=== PATIENT | male | born 1985 | race Caucasian/White ===

== ENCOUNTER 2018-08-02 17:17 | Emergency (ER) | payer SELFPAY ==
--- NOTE | 2018-08-02 18:32 | ER ---
Nurse's Notes [facility] Name: Nomi Malhotra Age: 32 yrs Sex: Male : 1985 Arrival Date: 08/02/2018 Time: 17:20 Bed 19 Private MD: None, None Diagnosis: Back pain Presentation: 08/02 17:24 Presenting complaint: Patient states: "I was crawling on a scaffold and when I got up I aa5 hit a pipe". Pt c/o back pain that began Thursday. Transition of care: patient was not received from another setting of care. Onset of symptoms was July 2018. Risk Assessment: Do you want to hurt yourself or someone else? Patient reports no desire to harm self or others. Initial Sepsis Screen: Does the patient meet any 2 criteria? No. Patient's initial sepsis screen is negative. Does the patient have a suspected source of infection? No. Patient's initial sepsis screen is negative. Care prior to arrival: None. 17:24 Method Of Arrival: Ambulatory aa5 17:24 Acuity: TOMA 4 aa5 Triage Assessment: 17:35 General: Appears in no apparent distress. uncomfortable, Behavior is calm, cooperative, hj appropriate for age. Pain: Complains of pain in back. Musculoskeletal: Circulation, motion, and sensation intact. Capillary refill < 3 seconds, Range of motion: intact in all extremities. Historical: - Allergies: 17:33 No Known Allergies; aa5 - PMHx: 17:33 None; aa5 - PSHx: 17:33 None; aa5 - Immunization history:: Flu vaccine is not up to date. - Social history:: Smoking status: Patient uses tobacco products, smokes two packs cigarettes per day. - Ebola Screening: : No symptoms or risks identified at this time. Screenin:35 Abuse screen: Denies threats or abuse. Denies injuries from another. Nutritional hj screening: No deficits noted. Tuberculosis screening: No symptoms or risk factors identified. Fall Risk None identified. Assessment: 17:38 General: Appears in no apparent distress. uncomfortable, Behavior is calm, cooperative, hj appropriate for age. Pain: Complains of pain in back Pain currently is 4 out of 10 on a pain scale. Neuro: Level of Consciousness is awake, alert, obeys commands, Oriented to person, place, time, situation, Appropriate for age. Cardiovascular: Capillary refill < 3 seconds Patient's skin is warm and dry. Respiratory: Airway is patent Respiratory effort is even, unlabored, Respiratory pattern is regular, symmetrical. GI: No signs and/or symptoms were reported involving the gastrointestinal system. : No signs and/or symptoms were reported regarding the genitourinary system. EENT: No signs and/or symptoms were reported regarding the EENT system. Derm: No signs and/or symptoms reported regarding the dermatologic system. Musculoskeletal: Reports pain in back. Vital Signs: 17:33 BP 114 / 74; Pulse 91; Resp 18 S; Temp 98.9(TE); Pulse Ox 98% on R/A; Weight 104.33 kg aa5 (R); Height 5 ft. 10 in. (177.80 cm) (R); Pain 3/10; 17:33 Body Mass Index 33.00 (104.33 kg, 177.80 cm) aa5 ED Course: 17:20 Patient arrived in ED. mr 17:21 None, None is Private Physician. mr 17:24 Arm band placed on. aa5 17:32 Triage completed. aa5 17:34 Eloy Finney, TIMI is Primary Nurse. hj 17:35 Patient has correct armband on for positive identification. Placed in gown. Bed in low hj position. Call light in reach. Side rails up X 1. Adult w/ patient. 17:44 Dexter Morrissey PA is PHCP. cp 17:44 Robby Thapa MD is Attending Physician. cp 18:36 No provider procedures requiring assistance completed. Patient did not have IV access hj during this emergency room visit. Administered Medications: No medications were administered Outcome: 18:31 Discharge ordered by . cp 18:37 Discharged to home ambulatory, with family. hj 18:37 Condition: stable 18:37 Discharge instructions given to patient, family, Instructed on discharge instructions, follow up and referral plans. medication usage, Demonstrated understanding of instructions, follow-up care, medications, Prescriptions given X 2. 18:37 Patient left the ED. hj Signatures: Frida Vargas mr HassanShirlene RN RN aa5 Eloy Finney RN RN Dexter Morrissey PA PA cp
--- NOTE | 2018-08-02 18:33 | EDPHYS ---
Physician Documentation [facility] Name: Nomi Malhotra Age: 32 yrs Sex: Male : 1985 Arrival Date: 08/02/2018 Time: 17:20 Bed 19 Private MD: None, None ED Physician Robby Thapa HPI: 08/02 18:15 This 32 yrs old Male presents to ER via Ambulatory with complaints of Back cp Pain. 18:15 The patient presents with pain that is acute. The symptoms are located in the left cp scapular area, right scapular area, left subscapular area, right subscapular area and mid back area. Onset: The symptoms/episode began/occurred last week. The pain does not radiate. Associated signs and symptoms: Pertinent negatives: abdominal pain, chest pain, constipation, fever, incontinence, numbness, tingling, weakness. The problem was sustained when bending over, struck mid back area against pipe at work. Severity of symptoms: in the emergency department the symptoms have improved. 18:15 Patient reports he was seen by chiropractor who referred him to urgent care. Urgent cp care recommended patient be seen in ED. Historical: - Allergies: 17:33 No Known Allergies; aa5 - PMHx: 17:33 None; aa5 - PSHx: 17:33 None; aa5 - Immunization history:: Flu vaccine is not up to date. - Social history:: Smoking status: Patient uses tobacco products, smokes two packs cigarettes per day. - Ebola Screening: : No symptoms or risks identified at this time. ROS: 18:20 Constitutional: Negative for body aches, chills, fever, poor PO intake. cp 18:20 Eyes: Negative for injury, pain, redness, and discharge. cp 18:20 Neck: Negative for pain with movement, pain at rest, stiffness, tenderness, bony tenderness. 18:20 Cardiovascular: Negative for chest pain, edema, palpitations. 18:20 Respiratory: Negative for cough, shortness of breath, wheezing. 18:20 Abdomen/GI: Negative for abdominal pain, nausea, vomiting, and diarrhea, black/tarry stool, rectal bleeding. 18:20 Back: Positive for pain at rest, pain with movement, of the mid back area and upper back, Negative for decreased range of motion. 18:20 : Negative for urinary symptoms, difficulty urinating, bladder incontinence, testicular pain 18:20 Skin: Negative for cellulitis, rash. 18:20 Neuro: Negative for altered mental status, dizziness, headache, numbness, weakness. 18:20 All other systems are negative. Exam: 18:25 Constitutional: The patient appears in no acute distress, alert, awake, comfortable, cp non-diaphoretic, non-toxic, well developed, well nourished. 18:25 Head/Face: Normocephalic, atraumatic. cp 18:25 Eyes: Periorbital structures: appear normal, Pupils: equal, round, and reactive to light and accomodation, Extraocular movements: intact throughout, Conjunctiva: mild erythema medial aspect left eye. Sclera: no appreciated abnormality, Lids and lashes: appear normal, bilaterally. 18:25 ENT: External ear(s): are unremarkable, Ear canal(s): are normal, clear, TM's: dullness, bilaterally, Nose: is normal, Mouth: is normal, Posterior pharynx: is normal, airway is patent, no erythema, no exudate. 18:25 Neck: C-spine: vertebral tenderness, is not appreciated, crepitus, is not appreciated, ROM/movement: is normal, is supple, without pain, no range of motions limitations, no nuchal rigidity. 18:25 Chest/axilla: Inspection: normal, Palpation: is normal, no crepitus, no tenderness. 18:25 Cardiovascular: Rate: normal, Rhythm: regular, Pulses: Pulses are 2+ in right radial artery and left radial artery. Edema: is not appreciated, JVD: is not appreciated. 18:25 Respiratory: the patient does not display signs of respiratory distress, Respirations: normal, no use of accessory muscles, no retractions, no splinting, no tachypnea, labored breathing, is not present, Breath sounds: are clear throughout, no decreased breath sounds, no stridor, no wheezing. 18:25 Abdomen/GI: Inspection: abdomen appears normal, Bowel sounds: active, all quadrants, Palpation: abdomen is soft and non-tender, in all quadrants. 18:25 Back: pain, that is mild, of the left scapular area, right scapular area, left subscapular area, right subscapular area and mid back area, ROM is normal, muscle spasm, is not present, Straight leg raises: of both lower extremities does not illicit pain. 18:25 Musculoskeletal/extremity: Exam is negative for bony tenderness, calf tenderness, decreased range of motion, deformity, injury. 18:25 Skin: cellulitis, is not appreciated, no rash present. 18:25 Neuro: Orientation: to person, place \T\ time. Mentation: is normal, Cerebellar function: is grossly normal, Motor: moves all fours, strength is normal, Sensation: is normal, Gait: is steady, at a normal pace, without difficulty. Vital Signs: 17:33 BP 114 / 74; Pulse 91; Resp 18 S; Temp 98.9(TE); Pulse Ox 98% on R/A; Weight 104.33 kg aa5 (R); Height 5 ft. 10 in. (177.80 cm) (R); Pain 3/10; 17:33 Body Mass Index 33.00 (104.33 kg, 177.80 cm) aa5 MDM: 17:44 Patient medically screened. cp 18:30 Data reviewed: vital signs, nurses notes, and as a result, I will discharge patient. cp Administered Medications: No medications were administered Disposition: 19:24 Co-signature as Attending Physician, Robby Thapa MD. ma2 Disposition: 08/02/18 18:31 Discharged to Home. Impression: Back pain. - Condition is Stable. - Discharge Instructions: Back Pain, Adult. - Prescriptions for Naprosyn 500 mg Oral Tablet - take 1 tablet by ORAL route 2 times per day take with food; 20 tablet. Cyclobenzaprine 10 mg Oral Tablet - take 1 tablet by ORAL route every 8 hours As needed no driving or operating heavy machinery while taking medication; 20 tablet. - Work release form, Medication Reconciliation Form, Thank You Letter, Antibiotic Education, Prescription Opioid Use form. - Follow up: Private Physician; When: 1 week; Reason: pain continues. - Problem is new. - Symptoms have improved. Signatures: Shirlene Hassan RN RN aa5 Eloy Finney RN RN hj Page, Corey, PA PA cp Robby Thapa MD MD ma2 Corrections: (The following items were deleted from the chart) 18:37 18:31 08/02/2018 18:31 Discharged to Home. Impression: Back pain. Condition is Stable. hj Forms are Medication Reconciliation Form, Thank You Letter, Antibiotic Education, Prescription Opioid Use. Follow up: Private Physician; When: 1 week; Reason: pain continues. Problem is new. Symptoms have improved. cp
== END 2018-08-02 18:37 | disposition home or self-care (01) ==
LOC: ER 17:17
DX: M54.9 Dorsalgia, unspecified (principal); F17.210 Nicotine dependence, cigarettes, uncomplicated
CPT/HCPCS: 99282